=== PATIENT | male | born 1940 | race Two or more races ===

== ENCOUNTER 2023-07-31 17:46 | Inpatient (IN) | payer OTHER ==
[~2023-07-31] VITALS: Ht 177.8 cm; Wt 77.0 kg
[2023-07-31] MEDS: SUCCINYLCHOLINE CHLORIDE 20 MG/ML 10ML VIAL IV ONE ×2 (18:06→18:35)
[2023-07-31] MEDS: ETOMIDATE (2MG/ML) 20ML VIAL IV ONE ×2 (18:06→18:35)
[2023-07-31] MEDS ORDERED: MIDAZOLAM DRIP 50 mg/50mL 50 ML IV SCH (18:15)
[2023-07-31] MEDS: MIDAZOLAM DRIP 50 mg/50mL 50 ML IV ONE (18:16)
[2023-07-31] MEDS: MIDAZOLAM DRIP 50 mg/50mL 50 ML IV SCH (18:16)
[2023-07-31] MEDS: NOREPINEPHRINE 8 MG/250ML KIT 250 ML IV SCH (18:17)
[2023-07-31 18:40] VITALS: PULSE 95; RESP 20; O2SAT 89
[2023-07-31 18:41] LABS: Basophils # (auto) 0 10 ^3/uL (0-0.2); Basophils % (auto) 0.2 % (0.0-2.0); Eosinophils # (auto) 0 10 ^3/uL (0-0.8); Nucleated Red Blood Cells % 0.2 %; Red Cell Distribution Width 16.9 % (11.8-14.3)
[2023-07-31 18:43] LABS: Eosinophils % (auto) 0.2 % (0.0-7.0); Hematocrit 40.3 % (41.0-53.0); Hemoglobin 12.9 g/dL (13.5-17.5); Lymphocytes # (auto) 0.5 10 ^3/uL (0.4-5.4); Lymphocytes % (auto) 3.8 % (10.0-50.0); Mean Corpuscular Hemoglobin 27.3 pg (28.0-32.0); Mean Corpuscular Hgb Conc. 31.9 g/dL (32.0-36.0); Mean Corpuscular Volume 85.6 fL (80.0-100.0); Monocytes # (auto) 1.8 10 ^3/uL (0-1.3); Monocytes % (auto) 13.6 % (0.0-12.0); Neutrophils # (auto) 11.1 10 ^3/uL (1.6-8.6); Neutrophils % (auto) 82.2 % (37.0-80.0); White Blood Cell 13.4 10^3/uL (4.4-10.8)
[2023-07-31] MEDS: NOREPINEPHRINE 8 MG/250ML KIT 250 ML IV ONE (18:47)
[2023-07-31] MEDS: cefTRIAXone 1GM/50ML D5W 50 ML IV ONE (18:56)
[2023-07-31] MEDS: SODIUM CHLORIDE 0.9% 2,300 ML IV ONE (18:56)
[2023-07-31 18:58] LABS: Alanine Aminotransferase 35 U/L (7-40); Albumin 3.2 g/dL (3.2-4.8); Alkaline Phosphatase 148 U/L (46-116); Anion Gap 20 (5-15); Aspartate Aminotransferase 77 U/L (13-40); Blood Urea Nitrogen 56 mg/dL (9-23); Calcium 9.2 mg/dL (8.7-10.4); Carbon Dioxide 16 mmol/L (20-30); Chloride 102 mmol/L (98-107); Glucose 121 mg/dL (74-106); Magnesium 2.3 mg/dL (1.6-2.6); Potassium 3.6 mmol/L (3.5-5.1); Sodium 138 mmol/L (136-145)
[2023-07-31 18:59] LABS: Bilirubin, Total 0.9 mg/dL (0.2-1.0); Total Protein 6.8 g/dL (5.7-8.2)
[2023-07-31 19:12] LABS: Lactic Acid w/Reflex 6.7 mmol/L (0.4-2.0)
[2023-07-31] MEDS: VANCOMYCIN 1GM/200ML 200 ML IV ONE (20:47)
[2023-07-31 22:00] VITALS: BP 124/35; PULSE 85; RESP 25; O2SAT 100
[2023-08-01] VITALS (20 sets, daily range): BP systolic 3–216; BP diastolic 17–193; PULSE 93–108; RESP 20–75; TEMP 97.5; O2SAT 66–100
[2023-08-01] MEDS: ACETAMINOPHEN 500 MG TAB PO ONE (03:30)
[2023-08-01] MEDS: ACETAMINOPHEN 650 mg PER 20.3 mL UD ONE ×2 (03:30→03:31)
[2023-08-01] MEDS: ACETAMINOPHEN 650 mg PER 20.3 mL UD PO ONE (03:30)
[2023-08-01 07:17] LABS: Base Excess -15.1 mmol/L (-2.0-2.0)
[2023-08-01] MEDS ORDERED: VANCOMYCIN PER PHARMACY 0 MG IV SCH ×2 (07:45→10:00)
[2023-08-01] MEDS: PHENYLEPHRINE INJ 40 MG in SODIUM CHL 0.9% 246 ML IV SCH (08:18)
[2023-08-01] MEDS: NOREPINEPHRINE BITARTRATE 16 MG in SODIUM CHL 0.9% 234 ML IV SCH (08:19)
[2023-08-01] MEDS: SODIUM BICARB 8.4% 50Meq/50ml SYR Vial IV ONE (08:28)
[2023-08-01] MEDS: PIPERACILLIN-TAZO 4.5GM 100 ML IV ONE (08:29)
[2023-08-01] MEDS: VANCOMYCIN 1GM/200ML 200 ML IV SCH (08:29)
[2023-08-01 08:32] LABS: Hematocrit 35.3 % (41.0-53.0); Hemoglobin 11.3 g/dL (13.5-17.5); Mean Corpuscular Hemoglobin 27.3 pg (28.0-32.0); Mean Corpuscular Hgb Conc. 31.9 g/dL (32.0-36.0); Mean Corpuscular Volume 85.3 fL (80.0-100.0); Red Blood Cells 4.13 10^6/uL (4.5-5.90); Red Cell Distribution Width 16.6 % (11.8-14.3)
[2023-08-01 08:39] LABS: Basophils % (manual) 0 (0.0-2.0); Blast Cells 0; Eosinophils % (manual) 0 (0-7); INR 1.58 (0.9-1.15); Partial Thromboplastin Time 60.9 SEC (24.5-34.5); Promyelocytes % 0; Prothrombin Time 16.1 sec (9.3-11.8); Reactive Lymphocytes 0
[2023-08-01 08:53] LABS: Alanine Aminotransferase 77 U/L (7-40); Alkaline Phosphatase 103 U/L (46-116); Anion Gap 13 (5-15); Aspartate Aminotransferase 196 U/L (13-40); BUN/Creatinine Ratio 38.1 (10.0-20.0); Calcium 7.2 mg/dL (8.7-10.4); Carbon Dioxide 17 mmol/L (20-30); Glucose 51 mg/dL (74-106); Potassium 3.9 mmol/L (3.5-5.1); Sodium 143 mmol/L (136-145)
[2023-08-01 08:54] LABS: Bilirubin, Total 0.6 mg/dL (0.2-1.0); Creatine Kinase IFCC 344 U/L (46-171); Total Protein 4.3 g/dL (5.7-8.2)
[2023-08-01 08:55] LABS: Blood Urea Nitrogen 77 mg/dL (9-23); Chloride 113 mmol/L (98-107)
[2023-08-01 09:01] LABS: Band Neutrophils % (manual) 4; Lymphocytes % (manual) 10 (10.0-50.0); Metamyelocytes % 3; Monocytes % (manual) 2 (0-12); Myelocytes % 8; Platelet Estimate Adequate
[2023-08-01] MEDS ORDERED: ACETAMINOPHEN 325 MG TAB PO PRN (10:00)
[2023-08-01] MEDS ORDERED: ONDANSETRON HCL 4 MG/2 ML VIAL IV PRN (10:00)
[2023-08-01] MEDS ORDERED: VASOPRESSIN 20 UNITS in SODIUM CHL 0.9% 99 ML IV SCH (10:00)
[2023-08-01] MEDS ORDERED: HEPARIN DRIP/D5W 100UNITS/ML 250 ML IV SCH ×2 (10:00→10:30)
[2023-08-01] MEDS ORDERED: HEPARIN SODIUM (PORCINE) 5000 UNITS/ML 1ML VIAL IV ONE (10:00)
[2023-08-01] MEDS ORDERED: MORPHINE SULFATE INJ 2 MG/ml SYRG IV PRN (10:00)
[2023-08-01] MEDS ORDERED: NITROGLYCERIN 0.4 MG SL TAB SL PRN (10:00)
[2023-08-01] MEDS ORDERED: CEFEPIME 1GM/ 50ML 50 ML IV SCH (10:00)
[2023-08-01 10:40] LABS: Lactic Acid w/Reflex 5.6 mmol/L (0.4-2.0)
[2023-08-01 10:45] LABS: Base Excess -14.5 mmol/L (-2.0-2.0)
[2023-08-01] MEDS ORDERED: SODIUM CHLORIDE 0.9% 2,300 ML IV ONE (10:45)
[2023-08-01 10:54] LABS: Urine Bacteria NONE SEEN /hpf (None Seen); Urine Blood 2+ /uL (Negative); Urine Clarity HAZY (Clear); Urine Color Yellow (Yellow); Urine Hyaline Cast FEW /lpf (0 - 2); Urine Mucus FEW (None Seen); Urine Protein, UAD 1+ (Negative); Urine Specific Gravity 1.014 (1.001-1.035); Urine Urobilinogen Normal (Negative); Urine WBC 6 /hpf (0 - 3)
[2023-08-01 10:59] LABS: COVID19 ANTIGEN SOFIA FIA NEGATIVE (NEGATIVE); Rapid Influenza A Negative (Negative); Rapid Influenza B Negative (Negative)
[2023-08-01] MEDS ORDERED: SODIUM BICARB 8.4% 50Meq/50ml SYR Vial IV ONE (11:00)
[2023-08-01] MEDS: SODIUM CHLORIDE 0.9% 1,000 ML IV SCH (11:45)
[2023-08-01] MEDS ORDERED: IPRATROPIUM BROM 0.5 MG/2.5ML INH SOL NEB SCH (12:00)
[2023-08-01] MEDS ORDERED: ALBUTEROL SULF 2.5 MG/0.5ML(0.5%) NEB SOLN NEB SCH (12:00)
[2023-08-01] MEDS ORDERED: HYDROCORTISONE SOD SUCC 100 MG/2ML INJ VIAL IV SCH (14:00)
[2023-08-02] MEDS ORDERED: VANCOMYCIN 1GM/200ML 200 ML IV SCH (09:00)
== END 2023-08-01 12:14 | DRG 208 ==
LOC: EDBD 17:46 → ER 17:46 → TELE 08-01 09:49 → ICU WEST 08-01 11:15
PROVIDERS: ADMIT Internal Medicine; ATTEND Internal Medicine
PROC: 5A12012 Performance of Cardiac Output, Single, Manual (ICD-10-PCS; principal; 2023-08-01)
PROC: 0BH17EZ Insertion of Endotracheal Airway into Trachea, Via Natural or Artificial Opening (ICD-10-PCS; 2023-08-01)
PROC: 5A1935Z Respiratory Ventilation, Less than 24 Consecutive Hours (ICD-10-PCS; 2023-08-01)
DX: J96.01 Acute respiratory failure with hypoxia (principal); I21.4 Non-ST elevation (NSTEMI) myocardial infarction; N17.0 Acute kidney failure with tubular necrosis; E87.20 Acidosis, unspecified; M62.82 Rhabdomyolysis; R57.0 Cardiogenic shock; F17.200 Nicotine dependence, unspecified, uncomplicated; N18.9 Chronic kidney disease, unspecified; I12.9 Hypertensive chronic kidney disease with stage 1 through stage 4 chronic kidney disease, or unspecified chronic kidney disease; R74.01 Elevation of levels of liver transaminase levels
CPT/HCPCS: 31500; 36415; 36556; 36600; 70450; 71045; 76775; 80053; 81001; 82550; 82805; 83605; 83735; 83880; 84484; 85007; 85025; 85027; 85610; 85730; 87040; 87070; 87077; 87086; 87186; 87205; 87426; 87804; 92950; 94002; 96365; 96367; 96368; 99291; G0378; J0330; J2250; J2543